=== PATIENT | female | born 1995 | race Caucasian/White ===

== ENCOUNTER 2017-09-18 04:55 | Emergency (ER) | payer BC ==
[2017-09-18 04:59] VITALS: BP 123/80
--- NOTE | 2017-09-18 05:09 | ER Report ---
History and Physical Time Seen By MD: 05:07 Hx. of Stated Complaint: patients eye started hurting last night and states that she woke up in the am with eye pain HPI/ROS CHIEF COMPLAINT: Left eye pain HISTORY OF PRESENT ILLNESS: 22-year-old female contact lens wearer began to feel some irritation with her left contact at dinner last night. She woke up approximately 3 AM with severe left eye pain. She is unable to open her eye. She did remove her contacts at bedtime. Patient notes no infectious symptoms mattering or discharge. Allergies: Coded Allergies: No Known Drug Allergies (Unverified , 09/18/17) Home Meds No Active Prescriptions or Reported Meds Reviewed Nurses Notes: Yes Old Medical Records Reviewed: Yes Hx Substance Use Disorder: No Constitutional Vital Sign - Last 24 Hours 09/18/17 04:59 Temp 98.8 Pulse 105 Resp 18 B/P (MAP) 123/80 Pulse Ox 99 O2 Delivery Room Air Physical Exam General appearance: Alert no distress. HEENT: On examination, the left eye is grossly injected. There is tearing. Patient unable to open eye due to pain. Proparacaine Drops are instilled. She is able to open it. Foreseen drops are instilled. There is a large corneal ulceration over the central portion of the cornea Respiratory: Chest is non tender, lungs are clear to auscultation. Cardiac: Regular rate and rhythm DIFFERENTIAL DIAGNOSIS: After history and physical exam differential diagnosis was considered for corneal abrasion, corneal irritation, contact keratitis Medical Decision Making ED Course/Re-evaluation ED Course Patient was admitted to an examination room. H&P was done. The differential diagnoses was considered. On Clinical examination, patient is a large contact ulcer/keratosis. Patient's placed on Tobrex drops. She is advised not to wear contacts for least 5 days. Patient sent home with Lortab prepack for pain. Decision to Disposition Date: September 18, 2017 Decision to Disposition Time: 05:21 Depart Departure Latest Vital Signs Vital Signs Date Time Temp Pulse Resp B/P (MAP) Pulse Ox O2 Delivery O2 Flow Rate FiO2 09/18/17 04:59 98.8 105 18 123/80 99 Room Air Impression: Primary Impression: Corneal ulcer of left eye Additional Impression: Keratitis secondary to contact lens Condition: Improved Disposition: HOME OR SELF-CARE New Scripts No Active Prescriptions or Reported Meds Patient Instructions: Corneal Ulcer (ED) Additional Instructions: Use Tobrex drops 1 drop 3 times daily in left eye Avoid wearing contacts for at least 5 days Use ibuprofen or Tylenol as needed for pain relief Follow-up with your contact lens prescriber back in [place] for recheck in 3- 5 days Problem Qualifiers JACQUELINE GRIMALDO DO September 18, 2017 05:09
[2017-09-18] MEDS ORDERED: FLUORESCEIN SOD 1 MG 1 EA STRP OD ONE (05:10)
[2017-09-18] MEDS ORDERED: PROPARACAINE 0.5% OP 15ML BTL OD ONE (05:10)
[2017-09-18] MEDS ORDERED: TOBRAMYCIN/DEX OP SUSP 2.5 ML OS ONE (05:25)
[2017-09-18] MEDS ORDERED: ACET/HYDROC 5/325MG TH ER ONLY 2 TAB/BOTTLE PO ONE (05:25)
== END 2017-09-18 05:34 | disposition home or self-care (01) ==
LOC: ER 05:02
DX: H16.002 Unspecified corneal ulcer, left eye (principal); H16.9 Unspecified keratitis
CPT/HCPCS: 99282